=== PATIENT | female | born 1985 | race Caucasian/White ===

== ENCOUNTER → 2017-07-26 | Outpatient (CLI) | payer BC ==
[~2017-07-26] MED LIST: PRENTAB26 PO
[2017-07-26 16:09] LABS: URINE APPEARANCE CLOUDY (CLEAR); URINE BILIRUBIN NEG (NEG); URINE COLOR YELLOW; URINE EPITHELIAL CELL AUTO 0-5 /lpf (0-5); URINE NITRITE NEG (NEG); URINE SPECIFIC GRAVITY 1.023 (1.000-1.030); UROBILINOGEN NEG (NEG)
[2017-07-26 16:48] LABS: MANUAL MICROSCOPIC REQUIRED? NO; REVIEW REQ? NO
== END | disposition home or self-care (01) ==
LOC: C.LABSPEC 15:36
PROVIDERS: ATTEND Obstetrics & Gynecology
DX: Z34.81 Encounter for supervision of other normal pregnancy, first trimester (principal); Z3A.00 Weeks of gestation of pregnancy not specified

== ENCOUNTER → 2017-07-29 | Outpatient (CLI) | payer BC ==
[2017-07-29 10:15] LABS: BASO % 0.3 %; BASO ABS # 0.02 K/uL (0-0.2); COMPLETE YES; EOS % 0.8 %; HEMATOCRIT 38.7 % (37-47); IG% 0.3 %; LYMPH ABS # 1.34 K/uL (1.2-3.4); MEAN CELL VOLUME 82.9 fL (80-100); MEAN CORPUSCULAR HGB CONC 32.6 g/dl (32-36); MEAN PLATELET VOLUME 11.7 fL (7.4-10.4); MONO % 6.2 %; NEUT % 75.4 %; PLATELET COUNT 216 K/uL (130-400); RED BLOOD COUNT 4.67 M/uL (4.2-5.4); WHITE BLOOD COUNT 7.86 K/uL (4.8-10.8)
[2017-08-02 03:18] LABS: CHLAMYDIA TRACH RNA*** NOT DETECTED (NOT DETECTED); GC (NEIS GONORRHOEAE)RNA** NOT DETECTED (NOT DETECTED)
== END | disposition home or self-care (01) ==
LOC: C.LAB1850 08:58
PROVIDERS: ATTEND Obstetrics & Gynecology
DX: Z34.81 Encounter for supervision of other normal pregnancy, first trimester (principal); Z3A.00 Weeks of gestation of pregnancy not specified

== ENCOUNTER → 2017-09-23 | Outpatient (CLI) | payer BC ==
[2017-09-23 10:43] LABS: GTGD 50 Grams
== END | disposition home or self-care (01) ==
LOC: C.LAB1850 09:10
PROVIDERS: ATTEND Obstetrics & Gynecology
DX: Z34.82 Encounter for supervision of other normal pregnancy, second trimester (principal)

== ENCOUNTER → 2017-12-16 | Outpatient (CLI) | payer BC ==
[2017-12-16 10:35] LABS: HEMOGLOBIN 11.7 g/dL (12.0-16.0)
== END | disposition home or self-care (01) ==
LOC: C.LAB1850 09:15
PROVIDERS: ATTEND Obstetrics & Gynecology
DX: Z34.83 Encounter for supervision of other normal pregnancy, third trimester (principal)

== ENCOUNTER → 2017-12-23 | Outpatient (CLI) | payer BC | END | disposition home or self-care (01) | LOC: C.LAB1850 07:50 | PROVIDERS: ATTEND Obstetrics & Gynecology | DX: O28.1 Abnormal biochemical finding on antenatal screening of mother (principal) ==

== ENCOUNTER → 2018-02-10 | Outpatient (CLI) | payer BC | END | disposition home or self-care (01) | LOC: C.LABSPEC 11:31 | PROVIDERS: ATTEND Obstetrics & Gynecology | DX: Z34.83 Encounter for supervision of other normal pregnancy, third trimester (principal) ==

== ENCOUNTER 2021-06-15 23:49 | Observation (INO) ==
[2021-06-16] MEDS ORDERED: GI COCKTAIL ED USE PO ONE (00:22)
[2021-06-16] MEDS ORDERED: FAMOTIDINE 20MG/5ML IV PUSH IV STA (00:22)
[2021-06-16] MEDS ORDERED: SODIUM CHLORIDE 0.9% 1000ML 1,000 ML IV STA (00:22)
[2021-06-16 00:40] LABS: Basophils # (auto) 0.01 K/uL (0-0.2); Basophils % (auto) 0.1 %; Eosinophils # (auto) 0.04 K/uL (0-0.5); Eosinophils % (auto) 0.4 %; Hematocrit (blood only) 40.1 % (37-47); Hemoglobin 13.6 g/dL (12.0-16.0); Immature Granulocytes # (auto) 0.03 K/uL (0.00-0.02); Immature Granulocytes % (auto) 0.3 %; Lymphocytes # (auto) 0.78 K/uL (1.2-3.4); Lymphocytes % (auto) 6.9 %; Mean Corpuscular Hemoglobin 30.2 pg (25-34); Mean Corpuscular Hgb Conc 33.9 g/dL (32-36); Mean Corpuscular Volume 88.9 fL (80-100); Mean Platelet Volume 11.9 fL (7.4-10.4); Monocytes # (auto) 0.34 K/uL (0.11-0.59); Neutrophils # (auto) 10.18 K/uL (1.4-6.5); Neutrophils % (auto) 89.3 %; Platelet Count 196 K/uL (130-400); Red Blood Count 4.51 M/uL (4.2-5.4); White Blood Count 11.38 K/uL (4.8-10.8)
[2021-06-16 00:49] LABS: Appearance Urine Clear (Clear); Bilirubin Urine Negative (Negative); Blood Urine Negative (Negative); Color Urine Yellow; Glucose Urine UA Negative (Negative); Ketones Urine 1+ (Negative); Leukocyte Esterase Urine Negative (Negative); Nitrite Urine Negative (Negative); Protein Urine Negative (Negative); Specific Gravity Urine 1.024 (1.000-1.030); Urobilinogen Urine Negative (Negative)
--- NOTE | 2021-06-16 00:51 | Emergency Department Note ---
History of Present Illness General Chief complaint: Abdominal Pain Stated complaint: ABD PAINS, NAUSEA, VOMITING Time Seen by Provider: 06/16/21 00:11 History of Present Illness Maximum Pain Intensity: 8 This 36-year-old presents to the ER complaining of abdominal pain Location: Right upper quadrant Quality: Painful Severity: Moderate Duration: Today Timing: Today Context: Patient was concerned and came in Modifying factors: better with rest; worse with eating Patient is concerned it could be her gallbladder. Patient denies chest pain, dyspnea, fevers, vomiting, diarrhea, urinary symptoms. No prior abdominal surgeries. Home Medications Medication Instructions Recorded Confirmed Type etonogestrel 0.12 mg-ethinyl 1 vag ring VAGINAL .COMPLEX #3 ea 08/21/20 06/16/21 Rx estradiol 0.015 mg/24 hr vaginal ring (NuvaRing) escitalopram oxalate 10 mg tablet 10 mg PO DAILY #90 tab 05/27/21 06/16/21 Rx ibuprofen 200 mg tablet 400 mg PO Q6H PRN 06/16/21 06/16/21 History Allergies Allergy/AdvReac Type Severity Reaction Status Date / Time No Known Allergies Allergy Verified 06/16/21 00:51 Past Med/Surg History Medical History Anxiety Elevated LFTs History of varicella Surgical History History of tooth extraction Family History Grandmother (Paternal) Diabetes Kidney stones Mother Endometriosis Father Hypertension Brother Hyperthyroidism Denies family history of Ovarian cancer Prostate cancer Myocardial infarction Breast cancer Colorectal cancer Social History Smoking Status: Never smoker Second Hand Exposure: No; Hx Alcohol Use: No Hx Substance Use: No Preferred Language: Romansh Communication Ability: Effective Visual Impairment: No Limitations Hearing Ability: Normal Therapy Technician Required: No marital status: Current Living Situation: Spouse current occupational status: employed current occupation: [employer] Feels Safe at Home: Yes Dental Care, Regularly: Yes Physical Activity Frequency: 5-6 Times per Week Seatbelt Use: always Sunscreen Use: Yes Review of Systems A total of 10 systems reviewed and were otherwise negative Physical Exam Vital Signs Vital Signs - 24 hr 06/16/21 00:05 06/16/21 00:42 06/16/21 00:43 Temperature 36.2 C L Temperature Source Temporal Artery Scan Pulse Rate 56 L 54 L 52 L Pulse Rate from SpO2 Sensor 54 L Pulse Rhythm Regular Respiratory Rate 18 18 16 Blood Pressure 130/82 129/76 Blood Pressure Mean 98 93 Blood Pressure Position Sitting Pulse Oximetry 100 100 100 Oxygen Delivery Method Room Air Room Air Sepsis Recent Fever Within 48 Hours No Sepsis New/Unexplained Change in Mental Status N/A Sepsis Action Taken by Nursing No Action Required 06/16/21 01:01 Temperature Temperature Source Pulse Rate 48 L Pulse Rate from SpO2 Sensor 49 L Pulse Rhythm Respiratory Rate 15 Blood Pressure 125/86 Blood Pressure Mean 99 Blood Pressure Position Pulse Oximetry 100 Oxygen Delivery Method Sepsis Recent Fever Within 48 Hours Sepsis New/Unexplained Change in Mental Status Sepsis Action Taken by Nursing VITALS: Vitals are noted on the nurse's note and reviewed by myself. Vital signs stable. GENERAL: Pleasant female, in no acute distress, nondiaphoretic, well-developed well-nourished. SKIN: Capillary reflex less than 2 seconds. HEENT: Normocephalic. PERRLA. EOMI. Nares patent. Mucous membranes moist. Neck is supple without nuchal rigidity. HEART: Regular rate and rhythm without murmurs gallops or rubs. LUNGS: Clear to auscultation bilaterally without wheezes, rales or rhonchi. No retractions or accessory muscle use. ABDOMEN: Positive bowel sounds x 4. Normal tympanic percussion. Soft, tender to palpation right upper quadrant, without masses or organomegaly. No CVA tenderness. No guarding or rebound tenderness. MUSCULOSKELETAL: No gross musculoskeletal defects. NEURO: Patient was alert and oriented to person place and time. No focal neuro logical deficits. Course Administered Medications Discontinued Medications Al Hydrox/Mg Hydrox/Simethicone (Gi Cocktail Ed Use) 1 dose PO ONE ONE Stop: 06/16/21 00:23 Last Admin: 06/16/21 00:37 Dose: 1 dose Documented by: [id number] Famotidine (Famotidine 20mg/5ml Iv Push) 20 mg IV ONE STA Stop: 06/16/21 00:23 Last Admin: 06/16/21 00:37 Dose: 20 mg Documented by: [id number] Sodium Chloride (Nss 1000ml) 1,000 mls @ 999 mls/hr IV .Q1H1M STA Stop: 06/16/21 01:22 Last Infusion: 06/16/21 02:21 Dose: 0 mls/hr Documented by: [id number] Admin: 06/16/21 00:37 Dose: 999 mls/hr Documented by: [id number] Morphine Sulfate (Morphine Sulfate 4 Mg/Ml 1 Ml Carp\Vial) 4 mg IV NOW STA Stop: 06/16/21 01:48 Last Admin: 06/16/21 01:50 Dose: 4 mg Documented by: [id number] Morphine Sulfate (Morphine Sulfate 4 Mg/Ml 1 Ml Carp\Vial) 4 mg IV NOW STA Stop: 06/16/21 03:10 Last Admin: 06/16/21 03:18 Dose: 4 mg Documented by: [id number] Ondansetron HCl (Ondansetron Inj 2 Mg/Ml 2 Ml Vial) 4 mg IV NOW STA Stop: 06/16/21 01:48 Last Admin: 06/16/21 01:50 Dose: 4 mg Documented by: [id number] Medical Decision Making Medical Records Attestation: I reviewed the patient's medical records. Home Medications Current Medication List: was personally reviewed by me Laboratory Data Attestation: I reviewed the patient's lab results. Result diagrams: 06/16/21 00:30 06/16/21 00:30 Lab Results 06/16/21 06/16/21 06/16/21 Range/Units 00:20 00:30 00:30 WBC 11.38 H (4.8-10.8) K/uL RBC 4.51 (4.2-5.4) M/uL Hgb 13.6 (12.0-16.0) g/dL Hct 40.1 (37-47) % MCV 88.9 (80-100) fL MCH 30.2 (25-34) pg MCHC 33.9 (32-36) g/dL RDW Std Deviation 42.0 (36.4-46.3) fL RDW Coeff of Jones 13.0 (11.5-14.5) % Plt Count 196 (130-400) K/uL MPV 11.9 H (7.4-10.4) fL Immature Gran % (Auto) 0.3 % Neut % (Auto) 89.3 % Lymph % (Auto) 6.9 % [place] % (Auto) 3.0 % Eos % (Auto) 0.4 % Baso % (Auto) 0.1 % Neut # (Auto) 10.18 H (1.4-6.5) K/uL Lymph # (Auto) 0.78 L (1.2-3.4) K/uL [place] # (Auto) 0.34 (0.11-0.59) K/uL Eos # (Auto) 0.04 (0-0.5) K/uL Baso # (Auto) 0.01 (0-0.2) K/uL Immature Gran # (Auto) 0.03 H (0.00-0.02) K/uL Sodium 140 (136-145) mmol/L Potassium 3.8 (3.5-5.1) mmol/L Chloride 109 H (98-107) mmol/L Carbon Dioxide 24 (21-32) mmol/L Anion Gap 7.0 (3-11) BUN 16 (7-18) mg/dl Creatinine 0.89 (0.6-1.2) mg/dl Est Cr Clr Drug Dosing 86.1 ml/min Est GFR ( Amer) 96.0 ml/min Est GFR (Non-Af Amer) 82.8 ml/min BUN/Creatinine Ratio 17.5 (10-20) Glucose 127 H (70-99) mg/dl Calcium 9.0 (8.5-10.1) mg/dl Total Bilirubin 0.7 (0.2-1) mg/dl AST 17 (15-37) U/L ALT 39 (12-78) U/L Alkaline Phosphatase 48 (45-117) U/L Total Protein 8.4 H (6.4-8.2) gm/dl Albumin 3.8 (3.4-5.0) gm/dl Globulin 4.6 H (2.5-4.0) gm/dl Albumin/Globulin Ratio 0.8 L (0.9-2) Lipase 144 (73-393) U/L Urine Color Yellow Urine Appearance Clear (Clear) Urine pH 5.0 (4.5-7.5) Ur Specific [place] 1.024 (1.000-1.030) Urine Protein Negative (Negative) Urine Glucose (UA) Negative (Negative) Urine Ketones 1+ H (Negative) Urine Blood Negative (Negative) Urine Nitrite Negative (Negative) Urine Bilirubin Negative (Negative) Urine Urobilinogen Negative (Negative) Ur Leukocyte Esterase Negative (Negative) COVID-19 Eval Order 06/16/21 Range/Units 03:25 WBC (4.8-10.8) K/uL RBC (4.2-5.4) M/uL Hgb (12.0-16.0) g/dL Hct (37-47) % MCV (80-100) fL MCH (25-34) pg MCHC (32-36) g/dL RDW Std Deviation (36.4-46.3) fL RDW Coeff of Jones (11.5-14.5) % Plt Count (130-400) K/uL MPV (7.4-10.4) fL Immature Gran % (Auto) % Neut % (Auto) % Lymph % (Auto) % [place] % (Auto) % Eos % (Auto) % Baso % (Auto) % Neut # (Auto) (1.4-6.5) K/uL Lymph # (Auto) (1.2-3.4) K/uL [place] # (Auto) (0.11-0.59) K/uL Eos # (Auto) (0-0.5) K/uL Baso # (Auto) (0-0.2) K/uL Immature Gran # (Auto) (0.00-0.02) K/uL Sodium (136-145) mmol/L Potassium (3.5-5.1) mmol/L Chloride (98-107) mmol/L Carbon Dioxide (21-32) mmol/L Anion Gap (3-11) BUN (7-18) mg/dl Creatinine (0.6-1.2) mg/dl Est Cr Clr Drug Dosing ml/min Est GFR ( Amer) ml/min Est GFR (Non-Af Amer) ml/min BUN/Creatinine Ratio (10-20) Glucose (70-99) mg/dl Calcium (8.5-10.1) mg/dl Total Bilirubin (0.2-1) mg/dl AST (15-37) U/L ALT (12-78) U/L Alkaline Phosphatase (45-117) U/L Total Protein (6.4-8.2) gm/dl Albumin (3.4-5.0) gm/dl Globulin (2.5-4.0) gm/dl Albumin/Globulin Ratio (0.9-2) Lipase (73-393) U/L Urine Color Urine Appearance (Clear) Urine pH (4.5-7.5) Ur Specific [place] (1.000-1.030) Urine Protein (Negative) Urine Glucose (UA) (Negative) Urine Ketones (Negative) Urine Blood (Negative) Urine Nitrite (Negative) Urine Bilirubin (Negative) Urine Urobilinogen (Negative) Ur Leukocyte Esterase (Negative) COVID-19 Eval Order Covid19 at [facility] Imaging Data Attestation: I personally reviewed and interpreted this imaging study as follows: MDM Narrative Prior records/ancillary studies reviewed. Triage Nursing notes reviewed. Additional history obtained from nursing. The patient's history was concerning for abdominal pain. Differential diagnosis: Etiologies such as appendicitis, diverticulitis, PUD, biliary pathology, UTI, pancreatitis, obstruction, mesenteric ischemia, aortic pathology, infections, inflammatory bowel disease, renal colic, as well as others were entertained. Physical examination findings: As above. ER treatment provided: An order was placed for continuous cardiac monitoring. The monitor shows a rate of 50-80 with a sinus rhythm. IV fluids, GI cocktail, Pepcid, morphine, Mefoxin On reassessment the patient felt better. Diagnostics interpreted by me: The labs revealed neg ua Mild leukocytosis, stable H&H Imaging studies: US RUQ: Distended GB. Cholelithiasis. Echogenic nonmobile gallstone demonstrated at the gallbladder neck or potentiallycystic duct which measures up to 1.4 cm. Patient was given pain medication prior to the examand assessment for Murphysign was not possible. No evidence of GB wall thickening or pericholecystic fluid. No biliarydilatation. Overall, the findings are indeterminate for acute cholecystitis. Suggest HIDAscan for further evaluation. Hepatomegalywith liver measuring 19.3 cm. The liver parenchyma has normal echogenicitywithout discrete lesions. Normal visualized pancreas. No right-sided hydronephrosis. Probable nonobstructive calculus in lower pole of the right kidney measuring 4 mm. No free fluid. Radiologist: Fiona Carlin M.D Consultation: A consultation was placed with Dr Sanchez. The case was discussed and diagnostics were reviewed. The patient was evaluated in the ER for further treatment. Exam and history seem consistent with biliary colic concerning for acute cholecystitis. Patient required multiple rounds of pain meds. Surgery was consulted. They will evaluate and take the patient to the OR. Patient was given antibiotics and admitted to the surgical service. By the evaluation outlined above emergent etiologies such as appendicitis, diverticulitis, UTI, pancreatitis, obstruction, mesenteric ischemia, aortic pathology, inflammatory bowel disease, renal colic, as well as others were deemed relatively unlikely. The pt informed about the findings as listed above. All questions were answered and pleased with the treatment. The chart was completed utilizing [employer] voice recognition software. Grammatical errors, random word insertions, pronoun errors, and incomplete sentences are an occassional consequence of this system due to software limitations, ambient noise, and hardware issues. Any formal questions or concer ns about the content, text, or information contained within the body of this dictation should be directly addressed to the physician assistant center manager for clarification. Impression & Plan Biliary colic Discharge Plan Visit Data Chief Complaint: Abdominal Pain Stated Complaint: ABD PAINS, NAUSEA, VOMITING ED Provider: Aileen Moore ED Midlevel Provider: Fely Garcia Discharge Problem: Biliary colic Patient Disposition: Being Evaluated by Surgeon Condition: Good Forms Stand Alone Forms: [employer] Prescriptions Prescriptions: No Action etonogestrel-ethinyl estradiol [NuvaRing] 0.12-0.015 mg/24 hr ring 1 vag ring VAGINAL .COMPLEX Qty: 3 RF: 3 escitalopram oxalate 10 mg tablet 10 mg PO DAILY Qty: 90 RF: 2 ibuprofen 200 mg Tablet 400 mg PO Q6H PRN (Reason: Pain) RF: 0 Referrals Referrals: Scar Ng CRNP [Primary Care Provider] -
[2021-06-16 01:09] LABS: Albumin Level 3.8 gm/dl (3.4-5.0); BUN Creatinine Ratio 17.5 (10-20); Creatinine Clr Calc Pharmacy 86.1 ml/min; Est GFR (Non-African American) 82.8 ml/min; Potassium 3.8 mmol/L (3.5-5.1)
[2021-06-16 01:12] LABS: Albumin Globulin Ratio 0.8 (0.9-2); Bilirubin,Total 0.7 mg/dl (0.2-1); Globulin 4.6 gm/dl (2.5-4.0); Total Protein 8.4 gm/dl (6.4-8.2)
[2021-06-16] MEDS ORDERED: ONDANSETRON INJ 2 MG/ML 2 ML VIAL IV STA (01:47)
[2021-06-16] MEDS ORDERED: MoRPHine SULFATE 4 MG/ML 1 ML CARP\\VIAL IV STA ×2 (01:47→03:09)
[2021-06-16] MEDS ORDERED: cefOXitin 2,000 MG/60 ML BAG IV STA (04:11)
--- NOTE | 2021-06-16 04:29 | Surgery Consultation ---
Date of Consultation June 16, 2021 Assessment & Plan (1) Biliary colic: (2) Acute cholecystitis due to biliary calculus: pt is a 36 year-old female who presents to Er with RUQ pain, with nausea and vomiting, IMP: acute cholecystitis , cholelithiasis, plan, I recommend to admit to hospital IV fluid control pain, iv antibiotic, then to do laparoscopic cholecystectomy, possible open or cholangiogram, D/W benefits, risks and alternatives of the surgery, the risks - infection, bleeding , injury other organs, incisional hernia, may need ERCP, pt understood, she agrees with the plan,she signed informed consent, I answered all questions, Present on Admission?: Yes History of Present Illness Reason for Consultation: acute cholecystitis Requesting Physician: GENESIS Harp History of Present Illness CC: pt is a 36 year-old female who presents with one day history RUQ pain with nausea and vomiting after she ate fat food, the pain is 7/10, nothing release, sharp on RUQ, pt denies fever, no diarrhea, no back pain, pt had U/S study diagnosis- cholelithiasis,the gallstone located at neck of gallbladder, I got a call for consult acute cholecystitis with gallstone, otherwise pt is healthy, Allergies Allergy/AdvReac Type Severity Reaction Status Date / Time No Known Allergies Allergy Verified 06/16/21 00:51 Home Medications Medication Instructions Recorded Confirmed Type etonogestrel 0.12 mg-ethinyl 1 vag ring VAGINAL .COMPLEX #3 ea 08/21/20 06/16/21 Rx estradiol 0.015 mg/24 hr vaginal ring (NuvaRing) escitalopram oxalate 10 mg tablet 10 mg PO DAILY #90 tab 05/27/21 06/16/21 Rx ibuprofen 200 mg tablet 400 mg PO Q6H PRN 06/16/21 06/16/21 History Patient History Medical History Anxiety Elevated LFTs History of varicella Surgical History History of tooth extraction Family History Grandmother (Paternal) Diabetes Kidney stones Mother Endometriosis Father Hypertension Brother Hyperthyroidism Denies family history of Ovarian cancer Prostate cancer Myocardial infarction Breast cancer Colorectal cancer Social History Smoking Status: Never smoker Second Hand Exposure: No; Hx Alcohol Use: No Hx Substance Use: No Preferred Language: Montserratian Communication Ability: Effective Visual Impairment: No Limitations Hearing Ability: Normal Campaign Worker Required: No marital status: Current Living Situation: Spouse current occupational status: employed current occupation: Ambulance Driver Paramedic Feels Safe at Home: Yes Dental Care, Regularly: Yes Physical Activity Frequency: 5-6 Times per Week Seatbelt Use: always Sunscreen Use: Yes Review of Systems Constitutional: as per Subjective / HPI Eyes: as per Subjective / HPI Respiratory: as per Subjective / HPI Cardiovascular: as per Subjective / HPI Gastrointestinal: pt had RUQ pain last year, it last about 1-2 days, Genitourinary: as per Subjective / HPI Musculoskeletal: as per Subjective / HPI Neurologic: as per Subjective / HPI Psychiatric: as per Subjective / HPI anxiety Endocrine: as per Subjective / HPI Physical Exam Constitutional: WD/WN, vitals as above Eyes: PERRL, conjunctivae normal, anicteric sclerae Neck: trachea midline, no thyromegaly Respiratory: normal respiratory effort, lungs clear to auscultation Cardiovascular: RRR, no murmur, no edema Gastrointestinal (Abdomen): tenderness at RUQ, no rebound pain, no distend, BS + Musculoskeletal: no cyanosis or clubbing, extremities motor strength 5/5 Skin: no rashes, warm and dry Neurologic: patellar DTR's 2+ bilat, sensation intact Psychiatric: A+Ox3, euthymic affect Results & Data ([facility]) Vital Signs (Past 12 Hours) Vital Signs Temp Pulse Resp BP Pulse Ox 06/16/21 01:01 48 L 15 125/86 100 06/16/21 00:43 52 L 16 100 06/16/21 00:42 54 L 18 129/76 100 06/16/21 00:05 36.2 C L 56 L 18 130/82 100 Laboratory Results Abnormal lab results 06/16/21 06/16/21 06/16/21 Range/Units 00:20 00:30 00:30 WBC 11.38 H (4.8-10.8) K/uL MPV 11.9 H (7.4-10.4) fL Neut # (Auto) 10.18 H (1.4-6.5) K/uL Lymph # (Auto) 0.78 L (1.2-3.4) K/uL Immature Gran # (Auto) 0.03 H (0.00-0.02) K/uL Chloride 109 H (98-107) mmol/L Glucose 127 H (70-99) mg/dl Total Protein 8.4 H (6.4-8.2) gm/dl Globulin 4.6 H (2.5-4.0) gm/dl Albumin/Globulin Ratio 0.8 L (0.9-2) Urine Ketones 1+ H (Negative) Diagnostic Findings U/S study- cholelithiasis,
[2021-06-16] MEDS: ONDANSETRON INJ 2 MG/ML 2 ML VIAL IV SCH ×4 (04:34→22:53)
[2021-06-16] MEDS ORDERED: PIPERACILL/TAZOBAC CONSULT ACTIVE PRN (05:37)
[2021-06-16] MEDS ORDERED: IBUPROFEN 200 MG TAB PO PRN (05:37)
[2021-06-16] MEDS ORDERED: [UNRECOGNIZED DRUG - OTHER] PV SCH (05:37)
[2021-06-16] MEDS ORDERED: ETONOGESTREL PV SCH (05:37)
[2021-06-16] MEDS ORDERED: oxyCODONE/ACETAMINOPHEN 5mg/325mg TAB PO PRN (05:37)
[2021-06-16] MEDS ORDERED: HYDROmorphone INJ 0.5 MG/0.5 ML SYR IV PRN (05:37)
[2021-06-16] MEDS ORDERED: ETHINYL ESTRADIOL PV SCH (05:37)
[2021-06-16] MEDS: LACTATED RINGER'S 1,000 ML IV SCH ×2 (06:07→16:55)
--- NOTE | 2021-06-16 07:06 | Ultrasound Report ---
US gallbladder HISTORY: 36 years-old Female ruq pain acute right upper quadrant abdominal pain COMPARISON: 04/16/2020 TECHNIQUE: Multiple real-time sonographic images of the abdominal right upper quadrant were obtained assessing grayscale appearance and color flow FINDINGS: The visualized pancreas is unremarkable. The liver measures 19.3 cm in length. No hepatic mass or mar ginal nodularity. 1.1 x 1.2 x 1.4 cm nonmobile gallstone is noted within the region of the gallbladde r neck versus proximal cystic duct. The gallbladder is mildly distended however demonstrates no wall thickening or pericholecystic fluid. Patient was recently given pain medication, therefore the sonogr aphic [place] sign was unable to be assessed. Normal common bile duct, 5.5 mm. Calculi within the inferior pole left kidney measure up to 4 mm. No right-sided hydronephrosis. IMPRESSION: 1. Mild gallbladder distention with a nonmobile stone within the region of the gallbladder neck versu s proximal cystic duct. There is no gallbladder wall thickening or pericholecystic fluid. Findings co uld be correlated with nuclear medicine hepatobiliary scan to exclude acute cholecystitis. 2. No biliary ductal dilation. 3. Nonobstructing right nephrolithiasis. ACT 112: Negative or not required by law. The above report was generated using voice recognition software. It may contain grammatical, syntax o r spelling errors. Electronically signed by: Maxwell Sherman M.D. 06/16/2021 7:05 AM
[2021-06-16] MEDS: PIPERACILLIN/TAZOBACTAM 3.375 GM in DEXTROSE 5% 100 ML IV SCH ×3 (08:32→23:54)
[2021-06-16] MEDS ORDERED: NEOSTIGMINE METHYLSULFATE 1 MG/ML 10ML VIAL ONE (12:59)
[2021-06-16] MEDS ORDERED: MIDAZOLAM HCL 1 MG/ML 2ML VIAL ONE (12:59)
[2021-06-16] MEDS ORDERED: GLYCOPYRROLATE 0.2 MG/ML VIAL ONE (12:59)
[2021-06-16] MEDS ORDERED: fentaNYL citrate 100 MCG/2 ML VIAL ONE (12:59)
[2021-06-16] MEDS ORDERED: PROPOFOL IV EMULSION 10 MG/ML 20 ML VIAL IV ONE (12:59)
[2021-06-16] MEDS ORDERED: DEXAMETHASONE SOD INJ 4 MG/ML VIAL ONE (12:59)
[2021-06-16] MEDS ORDERED: LIDOCAINE 2% 2 ML VIAL/AMP(20MG/ML) INFIL ONE (12:59)
--- NOTE | 2021-06-16 13:08 | History & Physical Bridge Note ---
Date of Service June 16, 2021 History & Physical Bridge Note I have examined the patient, reviewed the History & Physical and in the interval since the performance of the History & Physical I have noted the following changes of clinical significance: no changes noted
[2021-06-16] MEDS ORDERED: LIDOCAINE 1% LOCAL 20 ML VIAL ONE (13:12)
[2021-06-16] MEDS ORDERED: BUPIVACAINE 0.5 % 5 MG/1 ML MPF 30ML VIAL ONE (13:12)
[2021-06-16] MEDS ORDERED: BACITRACIN OINT 15 GM TUBE ONE (13:12)
[2021-06-16] MEDS ORDERED: PROMETHAZINE HCL 12.5 MG in SODIUM CHLORIDE 0.9% 50 ML IV PRN (13:21)
[2021-06-16] MEDS ORDERED: ePHEDrine sulfate 50 MG/ML AMP IV PRN (13:21)
[2021-06-16] MEDS ORDERED: HYDROmorphone INJ 2 MG/ML SYR/VIAL IV PRN (13:21)
[2021-06-16] MEDS ORDERED: ATROPINE SULFATE 0.1 MG/ML 10ML SYR IV PRN (13:21)
[2021-06-16] MEDS ORDERED: ONDANSETRON INJ 2 MG/ML 2 ML VIAL IV PRN (13:21)
--- NOTE | 2021-06-16 13:21 | Anesthesiology Consultation ---
Date of Service June 16, 2021 Assessment & Plan ASA ASA2 Proposed Anesthesia Anesthesia Type: General Risk / Benefits Reviewed With: PT / POA / Parent / Guardian, Accepts Plan and Informed Consent Obtained History Surgery Operation Date: 06/16/21 07:00 Proposed Procedures p Laparoscopic Cholecystectomy - Lesley Sanchez MD Height/Weight Height: 5 ft 3 in Weight: 78.1 kg Allergies Allergy/AdvReac Type Severity Reaction Status Date / Time No Known Allergies Allergy Verified 06/16/21 13:02 Medications Home Medications Medication Instructions Recorded Confirmed Last Taken etonogestrel 0.12 mg-ethinyl 1 vag ring VAGINAL .COMPLEX #3 ea 08/21/20 06/16/21 Unknown estradiol 0.015 mg/24 hr vaginal ring (NuvaRing) escitalopram oxalate 10 mg tablet 10 mg PO DAILY #90 tab 05/27/21 06/16/21 Unknown ibuprofen 200 mg tablet 400 mg PO Q6H PRN 06/16/21 06/16/21 Unknown Active Medications Generic Name Dose Route Start Last Admin Trade Name [place] PRN Reason Stop Dose Admin Lactated Ringer's 1,000 mls @ 80 mls/hr 06/16/21 05:37 06/16/21 06:07 Lr IV 07/16/21 05:36 80 mls/hr .[id number] CHARLEE Administration Piperacillin Sod/Tazobactam 115 mls @ 28.75 mls/hr 06/16/21 08:00 06/16/21 12:39 Sod 3.375 gm/ Dextrose IV 06/26/21 07:59 Infused Q8H CHARLEE Infusion Protocol Ondansetron HCl 4 mg 06/16/21 04:30 06/16/21 10:39 Ondansetron Inj 2 Mg/Ml 2 Ml Vial IV 07/16/21 04:29 Not Given Q6H CHARLEE NPO Date Last Intake of Fluids: 06/15/21 Time Last Intake of Fluids: 23:00 Last Intake of Fluids Comment: sip of water Date Last Intake of Solids: 06/15/21 Time Last Intake of Solids: 17:00 Past Medical History Medical History Anxiety Elevated LFTs History of varicella Exercise / Class Metabolic Activity II 4-5 Yardwork/Stairs/Walk up hill Past Family History Family History Grandmother (Paternal) Diabetes Kidney stones Mother Endometriosis Father Hypertension Brother Hyperthyroidism Denies family history of Ovarian cancer Prostate cancer Myocardial infarction Breast cancer Colorectal cancer Past Surgical History Surgical History History of tooth extraction Past Anesthesia History No Hx of Anesthesia Complications and No Family Hx of Anesthesia Complications History of PONV No Hx of PONV and No Hx of Motion Sickness Social History Smoking Status: Former smoker Hx Alcohol Use: Yes Alcohol type: other alcohol intake frequency: holidays/special occasions only Hx Substance Use: No substance use type: does not use Review of Systems denies fever/cough/ colds/ chest pain/ SOB/ PARTHA denies PARTHA Physical Exam Vital Signs Last Vital Signs Temp 36.9 C 06/16/21 12:55 Pulse 58 L 06/16/21 12:55 Resp 18 06/16/21 12:55 BP 122/71 06/16/21 12:55 Pulse Ox 98 06/16/21 12:55 ENMT Mouth: no TMJ abnormality and no dentition abnormality Thyromental Distance: > or= 3.5 Finger Breadths Mallampati Class: I Neck neck extension not limited Respiratory normal respiratory effort; no respiratory distress Auscultation: lungs clear to auscultation bilaterally Cardiovascular Rate/Rhythm: regular rate and regular rhythm Neurologic moves all extremities Psychiatric Orientation: alert and oriented x 3 Testing Laboratory Results 06/16/21 00:30 06/16/21 00:30 Urine Color Yellow 06/16/21 00:20 Urine Appearance Clear (Clear) 06/16/21 00:20 Urine pH 5.0 (4.5-7.5) 06/16/21 00:20 Ur Specific [place] 1.024 (1.000-1.030) 06/16/21 00:20 Urine Protein Negative (Negative) 06/16/21 00:20 Urine Glucose (UA) Negative (Negative) 06/16/21 00:20 Urine Ketones 1+ (Negative) H 06/16/21 00:20 Urine Nitrite Negative (Negative) 06/16/21 00:20 Ur Leukocyte Esterase Negative (Negative) 06/16/21 00:20 06/16/21 13:04 POC Ur Test NEG
[2021-06-16] MEDS ORDERED: KETOROLAC 30 MG/ML VIAL ONE (14:29)
--- NOTE | 2021-06-16 14:38 | Post Operative Brief Note ---
Immediate Post Op Note v1 Date of Surgery June 16, 2021 Pre & Post Diagnosis Operation Date: 06/16/21 07:00 Pre-Op Diagnosis: Acute Cholecystitis, cholelithiasis Post-Op Diagnosis: Acute Cholecystitis, cholelithiasis I identified the patient and participated in the time-out.: Yes Procedure Operation Date: 06/16/21 07:00 Actual Procedures p Laparoscopic Cholecystectomy(Not Applicable) - Lesley Sanchez MD Surgeon Lesley Sanchez MD Animal Attendant GENESIS Calle Estimated Blood Loss 20 Findings Consistent with Post-Op Diagnosis Fluids 1200ml Specimens gallbladder Anesthesia Type General Complications none Disposition Accompanied Patient To Recovery: Yes
[2021-06-16] MEDS: fentaNYL citrate 100 MCG/2 ML VIAL IV PRN ×2 (15:10→15:15)
--- NOTE | 2021-06-16 15:21 | Operative Report (OR) ---
DATE OF PROCEDURE: 06/16/2021. PREOPERATIVE DIAGNOSES: Acute cholecystitis, cholelithiasis. POSTOPERATIVE DIAGNOSES: Acute cholecystitis, cholelithiasis. OPERATION: Laparoscopic cholecystectomy. SURGEON: Lesley Sanchez MD. CIRCUS ARTIST: Renay Spencer PA-C. ANESTHESIA: General. ESTIMATED BLOOD LOSS: About 20 mL. FINDINGS: Acute cholecystitis with cholelithiasis. COMPLICATIONS: None. INDICATIONS FOR THE PROCEDURE: This is a 36-year-old female who was admitted to the hospital for acu te cholecystitis with cholelithiasis and I recommended to do laparoscopic cholecystectomy, possible o pen, possible cholangiogram. I did talk to the patient about the benefits and risks, alternate proce dure. I indicated the risks may include, but not limited to, such as bleeding, infection, injury to other organs, bile leak, may need ERCP, incisional hernia. The patient understands. She signed info rmed consent and I answered all questions. DETAILS OF THE PROCEDURE: After we identified the patient and verified the procedure, we brought the patient to the OR, put the patient in the supine position on the OR table. The patient received SCD on bilateral leg to prevent DVT. Also, patient received 3.375 grams Zosyn IV for prophylactic antib iotic and also the patient received general anesthesia without difficulty. Abdomen was prepped and d raped in routine sterile fashion. After timeout, I injected the local anesthesia by using 1% lidocai ne mixed with 0.5% Marcaine just above the umbilicus. I then made a small incision just above umbili cus, opened fascia, opened peritoneum. Under direct vision, put a James trocar in, connected to CO2 to create pneumoperitoneum, flow rate at 6 liters per minute, pressure not more than 14 mmHg. Once we get a nice pneumoperitoneum, we put a camera in, looked around the abdomen, it shows normal findin g on the liver; however, the gallbladder shows significant gallbladder wall thickening, edema, diagno sis of acute cholecystitis. Once we have confirmed diagnosis, we put another three 5 mm trocars on t he right upper quadrant. Once all trocars in, we used grasper to hold the base of gallbladder, put i n the direction to the diaphragm. Another grasper to hold the pouch of gallbladder, put a lateral to expunge the triangle of Calot. The cystic duct was identified and mobilized. I put two 5 mm metal clips on the proximal cystic duct and one on the distal cystic duct. I used a scissor for transectio n of cystic duct, rechecked, no bile leak. The cystic artery was identified, mostly put two 5 mm met al clips on the proximal cystic artery and one on the distal cystic artery, then used a scissor for t ransection of cystic artery, rechecked, no active bleeding. Then, we used the Bovie to take down gal lbladder from the liver bed. Rechecked, no bile leak and no active bleeding from the liver bed. The n, we removed gallbladder through the catch bag. Then, we reinserted the James trocar in, connected to CO2 to create pneumoperitoneum, again looked a round abdomen, no active bleeding, no bile leak from liver bed. Then, we removed all trocars under d irect vision. No active bleeding from the trocar site. Pneumoperitoneum was released, then I closed the umbilical incision fascial layer by using 0 Vicryl [id number] x2, closed subcutaneous layer by using 2-0 Vicryl interruptedly, closed skin by using 4-0 continuous running, closed another three 5 mm trocar site of skin only by using 4-0 Vicryl. Then, we put the dressing on. The patient skye ated the procedure well. All instrument, needle and sponge counts were correct x2 at the end of the case. The patient was transferred to recovery room in stable condition. The specimen was sent to stef velez. After the procedure, I did talk to the patient about the OR finding and the procedure we vianney talley. Patient understands the director of first impressions, Renay, is necessary for this procedure. Her role was h old the camera, exposure and retraction. Job ID: [id number]
--- NOTE | 2021-06-16 15:27 | Anesthesiology Progress Note ---
Date of Service June 16, 2021 Anesthesia Post Procedure Vital Signs Vital Signs: Temp Pulse Pulse Resp BP BP Pulse Ox 06/16/21 15:19 56 L 16 117/72 100 06/16/21 15:10 55 L 16 122/75 100 06/16/21 15:02 36.4 C L 64 16 128/77 100 06/16/21 12:55 36.9 C 58 L 18 122/71 98 06/16/21 08:20 36.5 C 66 14 114/77 93 06/16/21 05:37 36.9 C 61 16 112/73 96 06/16/21 05:28 64 16 136/74 98 06/16/21 01:01 48 L 15 125/86 100 06/16/21 00:43 52 L 16 100 06/16/21 00:42 54 L 18 129/76 100 06/16/21 00:05 36.2 C L 56 L 18 130/82 100 Transfer of Care Handoff Completed per policy Notes Mental Status: alert / awake / arousable Patient Amnestic to Procedure: Yes Nausea / Vomiting: adequately controlled Pain: adequately controlled Airway Patency, RR, SpO2: stable & adequate BP & HR: stable & adequate Hydration State: stable & adequate Anesthetic Complications: no major complications apparent
[2021-06-16] MEDS: ESCITALOPRAM OXALATE 10 MG TAB PO SCH (17:43)
--- NOTE | 2021-06-16 18:25 | Electrocardiogram Report ---
Test Reason : Blood Pressure : / mmHG Vent. Rate : 051 BPM Atrial Rate : 051 BPM P-R Int : 146 ms QRS Dur : 098 ms QT Int : 432 ms P-R-T Axes : 042 043 041 degrees QTc Int : 398 ms Poor data quality, interpretation may be adversely affected Sinus bradycardia with sinus arrhythmia Incomplete right bundle branch block Borderline ECG No previous ECGs available Confirmed by Adebayo Wyman ([id number]) on 06/16/2021 6:24:58 PM Referred By: REFERRED SELF Confirmed By:Sagar Wyman
[2021-06-17] MEDS: ONDANSETRON INJ 2 MG/ML 2 ML VIAL IV SCH ×2 (04:44→11:23)
[2021-06-17] MEDS: LACTATED RINGER'S 1,000 ML IV SCH (05:13)
[2021-06-17 07:37] LABS: Basophils # (auto) 0.01 K/uL (0-0.2); Basophils % (auto) 0.2 %; Eosinophils # (auto) 0.04 K/uL (0-0.5); Eosinophils % (auto) 0.6 %; Hematocrit (blood only) 32.5 % (37-47); Hemoglobin 10.6 g/dL (12.0-16.0); Immature Granulocytes # (auto) 0.01 K/uL (0.00-0.02); Immature Granulocytes % (auto) 0.2 %; Lymphocytes # (auto) 1.63 K/uL (1.2-3.4); Lymphocytes % (auto) 24.5 %; Mean Corpuscular Hemoglobin 29.3 pg (25-34); Mean Corpuscular Hgb Conc 32.6 g/dL (32-36); Mean Corpuscular Volume 89.8 fL (80-100); Mean Platelet Volume 12.2 fL (7.4-10.4); Monocytes # (auto) 0.62 K/uL (0.11-0.59); Monocytes % (auto) 9.3 %; Neutrophils # (auto) 4.33 K/uL (1.4-6.5); Neutrophils % (auto) 65.2 %; Platelet Count 167 K/uL (130-400); RDW Coefficient of Variation 13.1 % (11.5-14.5); RDW Standard Deviation 42.9 fL (36.4-46.3); Red Blood Count 3.62 M/uL (4.2-5.4); White Blood Count 6.64 K/uL (4.8-10.8)
[2021-06-17] MEDS ORDERED: ACETAMINOPHEN 325 MG TAB PO PRN (07:54)
[2021-06-17] MEDS: PIPERACILLIN/TAZOBACTAM 3.375 GM in DEXTROSE 5% 100 ML IV SCH (08:10)
[2021-06-17 08:17] LABS: Albumin Level 2.7 gm/dl (3.4-5.0); BUN Creatinine Ratio 11.6 (10-20); Calcium 8.7 mg/dl (8.5-10.1); Creatinine Clr Calc Pharmacy 104.4 ml/min; Est GFR (African American) 121.9 ml/min; Est GFR (Non-African American) 105.2 ml/min; Potassium 3.7 mmol/L (3.5-5.1)
[2021-06-17 08:22] LABS: Albumin Globulin Ratio 0.8 (0.9-2); Globulin 3.3 gm/dl (2.5-4.0)
[2021-06-17 08:32] VITALS: PULSE 46; TEMP 98.4; O2SAT 98
--- NOTE | 2021-06-17 08:52 | Discharge Summary ---
Date of Service June 17, 2021 Admission HPI Per Admitting Provider pt is a 36 year-old female who presents with one day history RUQ pain with nausea and vomiting after she ate fat food, the pain is 7/10, nothing release, sharp on RUQ, pt denies fever, no diarrhea, no back pain, pt had U/S study diagnosis- cholelithiasis,the gallstone located at neck of gallbladder, I got a call for consult acute cholecystitis with gallstone, otherwise pt is healthy, Principal Diagnosis Acute calculous cholecystitis Discharge Exam Constitutional WD/WN, vitals as above no acute distress and not ill appearing Respiratory normal respiratory effort; no respiratory distress and no labored breathing Gastrointestinal (Abdomen) Inspection/Auscultation: abdomen normal to inspection; abdomen not distended Percussion/Palpation: + abdomen tender (at incision sites appropriate postop) and abdomen soft; no guarding and abdomen not rigid Skin no rashes, warm and dry + incision (covered with dry dressings, clean and intact) Psychiatric A+Ox3, euthymic affect Discharge Data Allergies Allergy/AdvReac Type Severity Reaction Status Date / Time No Known Allergies Allergy Verified 06/16/21 13:02 Consultations 06/16/21 04:09 ED Decision to Admit Stat Procedures Performed Operation Date: 06/16/21 07:00 Actual Procedures p Laparoscopic Cholecystectomy(Not Applicable) - Lesley Sanchez MD Ordered Studies 06/16/21 00:22 gallbladder Urgent Hospital Course (1) Acute cholecystitis due to biliary calculus: Patient was taken to operating room for laparoscopic cholecystectomy possible open. Patient found to have acute cholecystitis with significant gallbladder wall edema. Patient tolerated procedure well without difficulty and was transferred to recovery room then to medical/surgical floor for postop care. Diet was advanced to clear liquids, activity as tolerated, PO Percocet and Tylenol prn pain, IV zosyn continued, scds, and incentive spirometry. POD # 1 , afebrile, vitals stable, mild to moderate postop pain at incision sites but preoperative pain resolved. No nausea or vomiting. No chest pain or shortness of breath. Leukocytosis resolved. T. bili and lfts wnl. Clear liquid diet was ordered for lunch. Advised patient to ambulate hallway and if does well with liquids and pain controlled she could be discharged in afternoon. Patient was discharged home on POD # 1 in stable condition. Total Time Total Time Spent Total Time Spent (In Minutes): 20 Total Time Includes: Examination of the Patient, Discharge Planning and Medication Reconciliation Discharge Plan Discharge Items Patient Disposition: Home - Self-Care Reason For Visit: VOMITING, LOWER ABD PAIN Discharge Diagnosis: Acute calculous cholecystitis Condition on Discharge: Good Activity: Per Instructions section Non-emergency contact: Surgeon Call non-emergency contact if: you have any medication questions, your pain is not controlled, your pain is worsening, your pain is concerning for you, you have a fever, your temperature is above 101, your wound has increased redness, your wound has increased drainage and your wound pain has increased Follow-up/Referrals: Scar Ng CRNP [Primary Care Provider] - Lesley Sanchez MD [Physician] - Diet: Regular Addtl Attending Provider Instructions: Post-Surgical ~Discharge Instructions Activity Recommendations: - lifting limitation: (25 pounds for 4 weeks), - exercise/sex/sports limit: (nonstrenuous for 2 weeks), - driving or machine use limit: (none for 1 week, until pain free, or no longer taking narcotic pain medication), - Shower/bathe limit: (may shower beginning Tuesday) Diet: - Resume previous diet SPECIAL CARE INSTRUCTIONS: - May shower on Tuesday. Sponge bath and wash hair in meantime. On Tuesday, remove outer dressings and shower. Let water run over area and pat dry. - Leave steri strips on for one week and then remove. They may fall off on their own that is okay. - Call the surgeon's office with any questions or concerns - - (ex. temperature higher than 101 degrees F, excessive bleeding or pain). MEDICATIONS: - Resume previous medications unless instructed otherwise by your surgeon. - May alternate extra strength Tylenol and Ibuprofen as needed for mild pain -650 mg Tylenol every 6 hours as needed - Ibuprofen 600 mg every 6 hours as needed (take with food) - Percocet 1 every 4 hours, as needed for moderate to severe pain - Recommend daily stool softener (Colace) while taking narcotic pain medication to prevent constipation or straining. FOLLOW UP VISIT: - If not already scheduled, please call the office to schedule a two week follow-up appointment. Office number Pending Studies at Discharge: Yes Stand-Alone Forms: My [facility] Standard Media Index, Smoking Cessation Medications and DC Order Prescriptions: New oxycodone-acetaminophen [Percocet] 5-325 mg tablet 1 tab PO Q6H PRN (Reason: pain) Qty: 5 RF: 0 Continued etonogestrel-ethinyl estradiol [NuvaRing] 0.12-0.015 mg/24 hr ring 1 vag ring VAGINAL .COMPLEX Qty: 3 RF: 3 escitalopram oxalate 10 mg tablet 10 mg PO DAILY Qty: 90 RF: 2 ibuprofen 200 mg Tablet 400 mg PO Q6H PRN (Reason: Pain) RF: 0 Discharge Orders: Discharge Order (Routine); Ordered 06/17/21 Ordered By: Renay Spencer Admission Data Admit Date/Time: 06/16/21 04:14 Attending Provider: Lesley Sanchez Admit Provider: Lesley Sanchez Primary Care Provider: Scar Ng Other Providers: Lesley Sanchez
[2021-06-17] MEDS: ESCITALOPRAM OXALATE 10 MG TAB PO SCH (08:54)
[2021-06-17 12:07] VITALS: BP 105/68
== END 2021-06-17 13:10 | disposition home or self-care (01) | DRG 419 ==
LOC: ED 23:49 → INTOOBSV 06-16 04:14 → 3W 06-16 04:14